=== PATIENT | female | born 1940 | race Caucasian/White ===

== ENCOUNTER 2022-07-21 15:01 | Inpatient (IN) | payer MEDICARE ==
[~2022-07-21] VITALS: Ht 167.6 cm; Wt 54.0 kg
[2022-07-21] VITALS (10 sets, daily range): BP systolic 135–160; BP diastolic 64–82
--- NOTE | 2022-07-21 15:05 | NUR ---
PATIENT ESCORTED TO ROOM VIA WHEELCHAIR AND SHORTNESS OF BREATH IS NOTED. PROVIDER AND RESPIRATORY NOTIFIED OF PATIENT'S CONDITION.
--- NOTE | 2022-07-21 15:31 | NUR ---
pt arrived to er for shortness of breath, pt states that it started several days ago, and has been becoming increasingly worse. pt states non productive cough.
[2022-07-21 15:43] LABS: BASO% 0.1 % (0-3); HEMATOCRIT 44.3 % (37.0-47.0); HEMOGLOBIN 14.1 g/dl (12.0-16.0); IMMATURE GRANULOCYTES 0.2 % (0.0-5.0); MEAN CELL VOLUME 90.8 fL CALC (80.0-100.0); MEAN CORPUSCULAR HGB 28.9 pG CALC (26.0-32.0); MEAN CORPUSCULAR HGB CONC 31.8 g/dL CAL (32.0-36.0); MONO% 3.1 % (2-13); NEUT# 15.47 thou/uL (2.00-7.15); NEUT% 93.6 % (42-76); RED BLOOD COUNT 4.88 mill/uL (4.20-5.60); RED CELL DISTRI WIDTH 14.7 % (11.5-15.5)
[2022-07-21 15:54] LABS: ALBUMIN 4.4 g/dL (3.2-5.0); BILIRUBIN, TOTAL 0.6 mg/dL (0.0-1.4); CREATININE 1.5 mg/dL (0.5-1.0); POTASSIUM 4.2 mmol/l (3.5-5.1); TOTAL PROTEIN 8.5 g/dL (6.3-8.2)
--- NOTE | 2022-07-21 17:07 | NUR ---
pt resting no distress, wearing 2LNC, antibiotic infusing
--- NOTE | 2022-07-21 19:00 | NUR ---
PT ARRIVED TO NC VIA STRETCHER, ACCOMPANIED BY KALEE GOODWIN. REPORT RECEIVED FROM KALEE GONZALEZ. PT ORIENTED TO ROOM AND USE OF CALL LIGHT. VS ANS ASSESSMENT COMPLETED. O2 @ 3L VIA NASAL CANNULA IN PLACE. PT HAS NON PRODUCTIVE COUGH. SKIN IS INTACT. SAFETY PRECAUTIONS IN PLACE WITH CALL LIGHT IN REACH.
--- NOTE | 2022-07-21 19:20 | NUR ---
report called to herbert, all questions anwsered at this time
[2022-07-22] VITALS (9 sets, daily range): BP systolic 123–177; BP diastolic 58–77
--- NOTE | 2022-07-22 | NUR ---
PT ASSISTED TO BSC; 25O CLEAR, YELLOW URINE. PT BACK IN BED. NO DISTRESS NOTED. PT DENIES PAIN AT THIS TIME. SAFETY PRECAUTIONS IN PLACE WITH CALL LIGHT IN REACH.
[2022-07-22 06:01] LABS: HEMOGLOBIN 12.2 g/dl (12.0-16.0); MEAN CELL VOLUME 93.2 fL CALC (80.0-100.0); MEAN CORPUSCULAR HGB 29.7 pG CALC (26.0-32.0); MEAN CORPUSCULAR HGB CONC 31.9 g/dL CAL (32.0-36.0); RED BLOOD COUNT 4.11 mill/uL (4.20-5.60); RED CELL DISTRI WIDTH 14.8 % (11.5-15.5)
[2022-07-22 06:06] LABS: HEMATOCRIT 38.3 % (37.0-47.0)
[2022-07-22 06:08] LABS: CREATININE 1.3 mg/dL (0.5-1.0); MAGNESIUM 2.1 mg/dL (1.6-2.3); POTASSIUM 4.1 mmol/l (3.5-5.1)
[2022-07-22 06:21] LABS: ALBUMIN 3.3 g/dL (3.2-5.0); BILIRUBIN, TOTAL 0.3 mg/dL (0.0-1.4); TOTAL PROTEIN 6.3 g/dL (6.3-8.2)
--- NOTE | 2022-07-22 07:30 | NUR ---
BEDSIDE SHIFT REPORT, PT AWAKE AND ORIENTED, RESTING IN BED, DENIES PAIN, O2 @ 3L VIA NC IN PLACE, TELE MONITOR IN PLACE, CALL BELTRAN IN REACH AND BED LOCKED IN LOWEST POSITION.
[2022-07-22] MEDS ORDERED: LIPITOR40 M1 PO (11:34)
[2022-07-22] MEDS ORDERED: BENZONATATE200 MG PO (11:44)
[2022-07-22] MEDS ORDERED: CARVEDILOL3.125 MG PO (11:45)
[2022-07-22] MEDS ORDERED: CILOSTAZOL100 MG PO (11:47)
[2022-07-22] MEDS ORDERED: GABAPENTIN100 MG PO (11:49)
[2022-07-22] MEDS ORDERED: LISINOPRIL5 MG PO (11:51)
[2022-07-22] MEDS ORDERED: METFORMIN HCL500 M1 PO (11:56)
[2022-07-22] MEDS ORDERED: PROTONIX40 M2 PO (11:57)
[2022-07-22] MEDS ORDERED: XARELTO10 MG PO (11:59)
--- NOTE | 2022-07-22 12:00 | NUR ---
RESTING IN BED, NO NEW COMPLAINS.
--- NOTE | 2022-07-22 16:00 | NUR ---
SLEEPING, BREATHING SHALLOW BUT EVEN, CALL BELTRAN IN REACH.
--- NOTE | 2022-07-22 20:45 | NUR ---
PT IN BED RESTING WITH EYES CLOSED. PT AWAKEN TO PERFOM ASSESMET.[id number] PAIN OR DISCOMFORT NO S/S OF DISTRESS NOTED. CALL LIGHT IN REACH AMND BED IN LOWEST POSITION
[2022-07-23] VITALS (10 sets, daily range): BP systolic 111–143; BP diastolic 41–68
--- NOTE | 2022-07-23 00:50 | NUR ---
PT IN BED RESTING WITH EYES CLOSED BEATHING UNLABORED. NO S/S OF DISTRERSS NOTED. CALL LIGHT IN REAC AND BED IN LOWEST POSITION
--- NOTE | 2022-07-23 04:20 | NUR ---
PT IN BED RESTING WITH EYES CLOSED BREATHING EVEN AND UNLABORED. NO S/S OF DISTRESS NOTED. CALL LIGHT IN REACH AND BED IN LOWEST POSITION.
--- NOTE | 2022-07-23 20:00 | NUR ---
PT IN BED RESTING WITH EYES CLOSED, BREATHING EVEN AND UNLABORED. NO S/S OF DISTRESS NOTED. PT AKAWEN TO PERFORM ASSESMENT. DENIES PAIN OR DISCOMFORT. CALL LIGHT IN REACH AND BED INLOWEST POSITION.
[2022-07-24] VITALS: BP 118/59
--- NOTE | 2022-07-24 00:45 | NUR ---
PT IN BED RESTING WITH EYES CLOSED, BREATHING IS UNLABORED. O2 IS HIGH 80S OXYGEN PUT TO 5L AND SOLU MEDROL ADMINISTER. O2 UP TO 92. PT IS A MOUTH BREATHER. PT DENIES BEEN SORTH OF BREATH. CALL LIGHT IN REACH.
--- NOTE | 2022-07-24 04:30 | NUR ---
PT IN BED RESTING WITH EYES CLOSED BREAQTHING EVEN AND UNLABORED. NO S/S OF DISTRESS NOTED. CALL LIGHT IN REACH AND BED IN LOWEST POSITION
--- NOTE | 2022-07-24 05:08 | NUR ---
pt refused vitals nurse deb notified.
[2022-07-24 05:22] LABS: HEMATOCRIT 41.6 % (37.0-47.0); HEMOGLOBIN 12.2 g/dl (12.0-16.0); MEAN CORPUSCULAR HGB 29.2 pG CALC (26.0-32.0); MEAN CORPUSCULAR HGB CONC 29.3 g/dL CAL (32.0-36.0); RED BLOOD COUNT 4.18 mill/uL (4.20-5.60); RED CELL DISTRI WIDTH 15.3 % (11.5-15.5)
[2022-07-24 05:25] LABS: MEAN CELL VOLUME 99.5 fL CALC (80.0-100.0)
[2022-07-24 05:41] LABS: BILIRUBIN, TOTAL 0.2 mg/dL (0.0-1.4); CREATININE 1.1 mg/dL (0.5-1.0); MAGNESIUM 1.9 mg/dL (1.6-2.3)
[2022-07-24 05:47] LABS: POTASSIUM 5.1 mmol/l (3.5-5.1)
[2022-07-24 06:48] VITALS: BP 156/78
--- NOTE | 2022-07-24 08:02 | NUR ---
PT RESTING COMFORTABLY IN BED. VITAL SIGNS STABLE. NO NEEDS AT THIS TIME.
[2022-07-24 10:20] VITALS: BP 144/68
--- NOTE | 2022-07-24 12:03 | NUR ---
PT RESTING COMFORTABLY. NEW IV SITE OBTAINED IN LFA. VITAL SIGNS STABLE.
[2022-07-24 15:33] VITALS: BP 147/66
--- NOTE | 2022-07-24 16:00 | NUR ---
PT RESTING COMFORTABLY. VITAL SIGNS STABLE. NO NEEDS AT THIS TIME.
[2022-07-24 18:53] VITALS: BP 157/68
[2022-07-24 23:34] VITALS: BP 150/60
[2022-07-25] VITALS (7 sets, daily range): BP systolic 146–176; BP diastolic 67–81
--- NOTE | 2022-07-25 04:07 | NUR ---
Pt in bed with eyes closed with no respiratory distress noted. respiration even and non labored. Cough noted. repositioned throughout the night HOB elevated and call light within reach. Will continue to observe.
--- NOTE | 2022-07-25 05:18 | NUR ---
pt had a bp of 177/77 @0409. nurse notified.
[2022-07-25 09:17] LABS: BASO% 0.2 % (0-3); HEMOGLOBIN 10.8 g/dl (12.0-16.0); IMMATURE GRANULOCYTES 0.7 % (0.0-5.0); LYMPH% 12.4 % (15-41); MEAN CELL VOLUME 95.6 fL CALC (80.0-100.0); MEAN CORPUSCULAR HGB 29.5 pG CALC (26.0-32.0); MEAN CORPUSCULAR HGB CONC 30.9 g/dL CAL (32.0-36.0); MONO% 3.4 % (2-13); NEUT# 3.41 thou/uL (2.00-7.15); NEUT% 83.3 % (42-76); RED BLOOD COUNT 3.66 mill/uL (4.20-5.60); RED CELL DISTRI WIDTH 15.2 % (11.5-15.5)
[2022-07-25 10:54] LABS: ALBUMIN 2.9 g/dL (3.2-5.0); CREATININE 1.1 mg/dL (0.5-1.0); POTASSIUM 4.8 mmol/l (3.5-5.1); TOTAL PROTEIN 5.4 g/dL (6.3-8.2)
[2022-07-25 10:55] LABS: BILIRUBIN, TOTAL 0.1 mg/dL (0.0-1.4)
--- NOTE | 2022-07-25 20:00 | NUR ---
PT NOTED [facility]. NASAL CANNULA IN PLACE AT 2L O2. PT IS A/OX3 WITH GARBLE IN SPEECH. NON PORDUCTIVE COUGH WITNESSED. PT ASSESSMENT COMPLETED AND IV ON LFA APPEARS HEALTHY WITH ADEQUATE BLOOD RETURN. PT LUNG SOUNDS CRACKLES PRESENT AND DIMINISHED. PT DENIES ANY PAIN AT THIS TIME. PT VITALS WNL. O2 STAT AT 95%. CALL LIGHT WITHIN REACH AND SAFETY PRECAUTIONS IN PLACE.
--- NOTE | 2022-07-25 23:48 | NUR ---
PT IN BED LAYING [place]OWLERS. PT SLEEPING. NASAL CANNULA IN PLACE AND NO S/S OF DISTRESS. CALL LIGHT WITHIN REACH AND SAFETY PRECAUTIONS IN PLACE.
[2022-07-26] VITALS (10 sets, daily range): BP systolic 133–171; BP diastolic 66–102
[2022-07-26 05:42] LABS: BASO% 0.3 % (0-3); HEMATOCRIT 35.1 % (37.0-47.0); HEMOGLOBIN 10.8 g/dl (12.0-16.0); IMMATURE GRANULOCYTES 1.1 % (0.0-5.0); LYMPH% 10.2 % (15-41); MEAN CELL VOLUME 94.9 fL CALC (80.0-100.0); MEAN CORPUSCULAR HGB 29.2 pG CALC (26.0-32.0); MEAN CORPUSCULAR HGB CONC 30.8 g/dL CAL (32.0-36.0); MONO% 5.2 % (2-13); NEUT# 3.03 thou/uL (2.00-7.15); NEUT% 83.2 % (42-76); RED BLOOD COUNT 3.7 mill/uL (4.20-5.60); RED CELL DISTRI WIDTH 14.9 % (11.5-15.5)
[2022-07-26 06:04] LABS: ALKALINE PHOSPHATASE 50 u/l (38-126); ANION GAP 9 (6-22 (CALC)); BUN 38 mg/dL (8-23); BUN/CREATININE RATIO 40 (12-20 (CALC)); CARBON DIOXIDE 27 mmol/l (22-30); CHLORIDE 108 mmol/l (95-108); GFR FOR AFR.AMER. > 60 ML/MIN (>=60 (CALC)); GFR OTHER RACES 53 ML/MIN (>=60 (CALC)); POTASSIUM 4.6 mmol/l (3.5-5.1); SGOT/AST 21 u/l (9-36); SODIUM 139 mmol/l (137-146); TOTAL PROTEIN 5.9 g/dL (6.3-8.2)
[2022-07-26 06:07] LABS: BILIRUBIN, TOTAL 0.2 mg/dL (0.0-1.4)
--- NOTE | 2022-07-26 07:10 | NUR ---
BEDSIDE SHIFT REPORT, PT AWAKE ALERT AND ORIENTED X 2, NO C/O DISCOMFORT AT THIS TIME, O2 @ 3L VIA NC IN PLACE, TELE MONITOR IN PLACE, CALL BELTRAN IN REACH AND BED LOCKED IN LOWEST POSITION.
--- NOTE | 2022-07-26 09:01 | NUR ---
pt on 3L nc sat 98%
--- NOTE | 2022-07-26 10:08 | NUR ---
NEB TX GIVEN PRN.
--- NOTE | 2022-07-26 13:17 | NUR ---
RESTING IN BED, ALL NEEDS ADDRESSED, CALL BELTRAN IN REACH.
--- NOTE | 2022-07-26 19:15 | NUR ---
RECEIVED REPORT FROM DAYSHIFT NURSE. PT NOTED IN BED WITH NASAL CANNULA IN PLACE LAYING [place]LERS. PT DENIED ANY PAIN AT THIS TIME. ASSESSMENT COMPLETED AND IV SITE APPEARS HEALTHY.
[2022-07-27] VITALS (7 sets, daily range): BP systolic 122–191; BP diastolic 59–86
--- NOTE | 2022-07-27 00:29 | NUR ---
PT LAYING IN BED SLEEPING WITH NASAL CANNULA IN PLACE. NO S/S OF DISTRESS. CALL LIGHT WITHIN REACH AND SAFETY PRECAUTIONS IN PLACE.
--- NOTE | 2022-07-27 05:05 | NUR ---
PATIENT RESTING IN BED WITH O2 VIA NASAL CANNULA IN PLACE-O2 SAT IS 94%. IV SITE TO LEFT FOREARM INTACT. BP-191/86, HR-89. MEDICATED FOR HTN WITH APRESOLINE 10MG IVP. CALL LIGHT IN REACH. WILL CONT TO MONITOR.
--- NOTE | 2022-07-27 05:13 | NUR ---
PT BLOOD PRESSURE SYSTOLIC >190. RN MICKIE DEAN NOTIFIED AND ADMINISTERED MEDICATION PER EMAR. PT IS LAYING IN BED FOWLERS WITH NASAL CANNULA IN PLACE. CALL LIGHT WITHIN REACH AND SAFETY PRECAUTIONS IN PLACE. WILL REASESS BLOOD PRESSURE.
[2022-07-27 05:16] LABS: BASO% 0.2 % (0-3); HEMATOCRIT 36.9 % (37.0-47.0); HEMOGLOBIN 11.5 g/dl (12.0-16.0); IMMATURE GRANULOCYTES 0.9 % (0.0-5.0); LYMPH% 8.5 % (15-41); MEAN CELL VOLUME 93.7 fL CALC (80.0-100.0); MEAN CORPUSCULAR HGB 29.2 pG CALC (26.0-32.0); MEAN CORPUSCULAR HGB CONC 31.2 g/dL CAL (32.0-36.0); MONO% 3.7 % (2-13); NEUT% 86.7 % (42-76); RED BLOOD COUNT 3.94 mill/uL (4.20-5.60); RED CELL DISTRI WIDTH 14.8 % (11.5-15.5)
[2022-07-27 05:23] LABS: ALBUMIN 3.4 g/dL (3.2-5.0); ALKALINE PHOSPHATASE 52 u/l (38-126); ANION GAP 13 (6-22 (CALC)); BILIRUBIN, TOTAL 0.2 mg/dL (0.0-1.4); BUN 36 mg/dL (8-23); BUN/CREATININE RATIO 39 (12-20 (CALC)); CARBON DIOXIDE 29 mmol/l (22-30); CHLORIDE 106 mmol/l (95-108); CREATININE 0.9 mg/dL (0.5-1.0); GFR FOR AFR.AMER. > 60 ML/MIN (>=60 (CALC)); GFR OTHER RACES 60 ML/MIN (>=60 (CALC)); POTASSIUM 4.9 mmol/l (3.5-5.1); SGOT/AST 26 u/l (9-36); SODIUM 143 mmol/l (137-146); TOTAL PROTEIN 6.2 g/dL (6.3-8.2)
--- NOTE | 2022-07-27 08:00 | NUR ---
PT RESTING IN BED AND DENIES NEEDS-CALL LIGHT IN REACH
--- NOTE | 2022-07-27 12:00 | NUR ---
PT RESTING IN BED AND DENIES NEEDS-CALL LIGHT IN REACH
[2022-07-27] MEDS ORDERED: PREDNISONE10 MG PO (13:08)
--- NOTE | 2022-07-27 16:00 | NUR ---
PT RESTING IN BED AND DENIES PAIN OR NEEDS- CALL LIGHT IN REACH
--- NOTE | 2022-07-27 17:04 | NUR ---
PT DC HOME IN WHEELCHAIR WITH SON -PT CONNECTED TO HER PERSONAL HOME OXYGEN-NO SOB REPORTED BY THE PATIENT
== END 2022-07-27 16:56 | DRG 871 ==
LOC: ED 15:01 → ED-I 16:23 → ED 16:23 → ED-I 16:27 → ED 16:39 → MS2 16:40
PROVIDERS: Family Medicine; Internal Medicine; Nurse Practitioner Family; ADMIT Internal Medicine; ATTEND Internal Medicine
DX: A41.9 Sepsis, unspecified organism (principal); J18.9 Pneumonia, unspecified organism; J96.21 Acute and chronic respiratory failure with hypoxia; N17.9 Acute kidney failure, unspecified; J44.0 Chronic obstructive pulmonary disease with (acute) lower respiratory infection; R65.20 Severe sepsis without septic shock; E11.9 Type 2 diabetes mellitus without complications; I10 Essential (primary) hypertension; E78.5 Hyperlipidemia, unspecified; Z99.81 Dependence on supplemental oxygen; Z20.822 Contact with and (suspected) exposure to COVID-19
CPT/HCPCS: J1650